=== PATIENT | female | born 1975 | race Caucasian/White ===

== ENCOUNTER 2020-05-13 05:26 | Day surgery (SDC) | payer OTHER ==
[~2020-05-13] VITALS: Ht 167.6 cm; Wt 104.3 kg
--- NOTE | ~2020-05-13 | OP ---
PATIENT NAME: NICOLASA DE DIOS MEDICAL RECORD: [id number] :77 LOCATION:[facility] ADMISSION DATE: SURGEON: BRANDON HIRSCH, SLAVA GONZÁLES DATE OF OPERATION: 05/13/2020 PREOPERATIVE DIAGNOSES: 1. Impingement syndrome of the left shoulder. 2. Adhesive capsulitis of the left shoulder. 3. Biceps tendinitis of the left shoulder. 4. Rotator cuff tear of the left shoulder. POSTOPERATIVE DIAGNOSES: 1. Biceps tendinitis of the left shoulder. 2. Impingement syndrome of the left shoulder. 3. Acromioclavicular arthritis of the left shoulder. 4. Adhesive capsulitis of the left shoulder. PROCEDURES: 1. Arthroscopic biceps tenotomy. 2. Arthroscopic distal clavicle excision done through separate incision -- 1 cm. 3. Arthroscopic subacromial decompression with acromioplasty and bursectomy. 4. Manipulation under anesthesia. SURGEON: Slava Hernandez MD ANESTHESIA: General. INTRAOPERATIVE COMPLICATIONS: None. SUMMARY OF PATHOLOGIC FINDINGS: The patient had very irritated biceps tendinitis with partial thickness tearing profound anterior downward sloping acromion and acromioclavicular arthritis as well as adhesive capsulitis. OPERATIVE SUMMARY IN DETAIL: After obtaining the appropriate preoperative orthopedic surgery consent as well as anesthetic consultation, evaluation and clearance, the patient was brought to the operating room and placed on the operating table in supine position. After general laryngeal mask airway was administered, the patient was placed in right lateral decubitus position. All pressure points were well padded to include down leg peroneal pad as well as axillary roll. The patient was held firmly to the operating table using the vacuum pack suction system. Left upper extremity and shoulder were then prepped and draped in routine sterile fashion. At this point, the arm was manipulated first in abduction followed by external rotation, internal rotation, forward flexion, and extension. Having completed this, the arm was hooked up to the [employer] traction boom at 30 degrees of forward flexion, 30 degrees of abduction with 10 pounds of traction laterally. Arthroscopy was established in the glenohumeral joint from the posterior portal. Anterior portal was established in the anterior safe interval. Diagnostic arthroscopy showed the patient to have a pristine undersurface rotator cuff with no articular side tearing. The biceps tendon was as described above. [place] tissue ablation system from [employer] was utilized to release the biceps tendon at the bicipital labral junction. Having completed this, arthroscopy was established in the subacromial space. While in the subacromial space, substantial amount of bursitis was noted. This was taken down with a large arthroscopic resector. The OPERATIVE REPORT [id number] NICOLASA DE DIOS undersurface of the acromion was denuded of all soft tissue and the coracoacromial ligament was released. A 5-0 barrel bur was then used to perform acromioplasty at the level of acromioclavicular joint. Having completed this through a separate arthroscopic portal under direct arthroscopic visualization, distal clavicle was excised for 1 cm. Lastly, the residual of the bursa was taken down anteriorly, laterally, posteriorly and superiorly. Arthroscopy portals was then closed in routine interrupted fashion using 4-0 Prolene. Sterile dressings were applied. The patient was awakened and taken to the recovery room in stable condition. All final needle and sponge counts were correct. TRANSINT:[id number] Voice Confirmation ID: [id number] DOCUMENT ID: [id number] BRANDON HIRSCH, SLAVA GONZÁLES CC: [id number] DICTATION DATE: 05/13/20 1009 ATV MECHANIC: 05/13/20 1749 [facility] 05/13/20 [facility] [address] [place] [address]
[~2020-05-13 05:26] MED LIST: ADIPEX-P37.5 M1 PO; COZAAR50 MG PO; GLUCOPHAGE500 MG PO; HCTZ25 MG PO; LEVOXYL100 MCG PO; TOPAMAX50 MG PO
[2020-05-13 05:56] LABS: HEMATOCRIT 39.7 % (36.0-48.0); HEMOGLOBIN 13.3 g/dL (12-16); MCH 29.8 pg (26.0-34.0); MCHC 33.5 g/dL (31.0-37.0); RBC 4.46 10x6/uL (4.00-5.40); RDW 13.1 % (11.5-14.5); WBC 6.2 10x3/uL (4.8-10.8)
[2020-05-13 06:35] LABS: ANION GAP 15.5 mmol/L (8-16); CALCIUM 9.5 mg/dL (8.5-10.1); CARBON DIOXIDE 26.9 mmol/L (21.0-32.0); CREATININE - SERUM 1.1 mg/dL (0.6-1.3); POTASSIUM - SERUM 3.4 mmol/L (3.5-5.1)
[2020-05-13 07:37] VITALS: Ht 167.6 cm; Wt 104.3 kg
[2020-05-13] MEDS ORDERED: HYDROCODON-ACE1 EA10 PO (10:04)
== END 2020-05-13 12:20 | disposition home or self-care (01) ==
LOC: D.OPS 05:26 → D.PAN 07:30 → D.OPS 07:30
PROVIDERS: Anesthesiology; ATTEND Orthopaedic Surgery
DX: M75.42 Impingement syndrome of left shoulder (principal); M75.02 Adhesive capsulitis of left shoulder; M75.22 Bicipital tendinitis, left shoulder; M75.102 Unspecified rotator cuff tear or rupture of left shoulder, not specified as traumatic